=== PATIENT | female | born 1980 | race Caucasian/White ===

== ENCOUNTER 2017-01-29 01:38 | Emergency (ER) | payer SELFPAY ==
[~2017-01-29] VITALS: Ht 154.9 cm; Wt 75.0 kg
[~2017-01-29 01:38] MED LIST: BACT800T5 PO; PARO37.5CR PO; TRIA0.1L TOPICAL
[2017-01-29 01:41] VITALS: BP 128/87; PULSE 70; RESP 14; TEMP 98.2; O2SAT 99
[2017-01-29] MEDS ORDERED: ALBE200T PO (02:06)
--- NOTE | 2017-01-29 02:06 | PD ---
HPI Chief Complaint: Foreign Body Time Seen by Provider: 02:02 Travel History International Travel<30 days: No Contact w/Intl Traveler<30days: No Traveled to known affect area: No History of Present Illness HPI 36-year-old female presents to the emergency department for treatment of pinworms. Patient states that her nephew had pinworms and she was unaware of this. She states this evening she has been having rectal itching after lying down after her shower. She states that she went to see what was going on and she saw a small white worm. She denies any other symptoms but would like to be treated for pinworms due to exposure and her finding worm. She has no other symptoms to report. PFSH Past Medical History Anxiety: Yes Depression: Yes Heart Rhythm Problems: Yes (PT STATES HX OF BIGEMINI) High Cholesterol: Yes Diminished Hearing: No Genitourinary: Yes (POLYCYSTIC OVARIES) Immunizations Current: Yes ?: Not LMP: PCOS-JUN 2016 : 1 Para: 0 Ectopic : Yes Past Surgical History Gynecologic Surgery: Yes (LT TUBE REMOVED) Tonsillectomy: Yes Social History Alcohol Use: No Tobacco Use: No Substance Use: No Allergies-Medications (Allergen,Severity, Reaction): Coded Allergies: No Known Allergies (Unverified , 01/29/17) Reported Meds & Prescriptions Reported Meds & Active Scripts Active Albenza (Albendazole) 200 Mg Tab 400 Mg PO DIRECTED 4 Days Take two tablets by mouth now with food In two weeks, take remaining two tablets by mouth with food Triamcinolone Topical (Triamcinolone Acetonide) 0.1% Lotn 1 Applic TOPICAL TID Bactrim DS (Sulfamethoxazole-Trimethoprim DS) 1 Tab Tab 1 Tab PO Q12 7 Days Paxil 37.5 Mg Tab Cr (Paroxetine Hcl) 37.5 Mg Tabcr 37.5 Mg PO DAILY Review of Systems Except as stated in HPI: all other systems reviewed are Neg Physical Exam Narrative GENERAL: Well-nourished, well-developed email patient in no acute distress SKIN: Focused skin assessment warm/dry. HEAD: Normocephalic. EYES: No scleral icterus. No injection or drainage. NECK: Supple, trachea midline. No JVD or lymphadenopathy. CARDIOVASCULAR: Regular rate and rhythm without murmurs, gallops, or rubs. RESPIRATORY: Breath sounds equal bilaterally. No accessory muscle use. GASTROINTESTINAL: Abdomen soft, non-tender, nondistended. RECTAL EXAM: No masses or tenderness, no obvious worms are visualized. MUSCULOSKELETAL: No cyanosis, or edema. BACK: Nontender without obvious deformity. No CVA tenderness. Data Data Last Documented VS Vital Signs Date Time Temp Pulse Resp B/P Pulse Ox O2 Delivery O2 Flow Rate FiO2 01/29/17 01:41 98.2 70 14 128/[address] [facility] Medical Decision Making Medical Screen Exam Complete: Yes Emergency Medical Condition: Yes Medical Record Reviewed: Yes Differential Diagnosis Pinworms versus rectal itching versus anal fissure versus dermatitis Narrative Course 36-year-old female presents to the emergency department for evaluation. Patient has been exposed to pinworms and states that she saw one tonight after experiencing intense rectal itching. I am unable to visualize any worms at this time however the patient is requesting treatment or pinworms. Patient will be given a prescription for albendazole. She is encouraged to follow-up with primary care provider and return immediately with any acute worsening of symptoms. Diagnosis Primary Impression: Rectal itching Additional Impression: Family history of pinworm infection Referrals: Primary Care Physician Patient Instructions: General Instructions Additional Instructions: Frequent handwashing Repeat medication in 2 weeks Return immediately with any acute worsening of symptoms Med/Other Pt SpecificInfo: Prescription(s) given Scripts Albendazole (Albenza)200 Mg [id number] Mg PO DIRECTED 4 Days Ref 0 Take two tablets by mouth now with food In two weeks, take remaining two tablets by mouth with food Prov:María Salguero 01/29/17 Disposition: 01 DISCHARGE HOME Condition: Stable María Salguero January 29, 2017 02:06
== END 2017-01-29 03:13 | disposition home or self-care (01) ==
LOC: NEPK 01:38
DX: L29.0 Pruritus ani (principal)
CPT/HCPCS: 99282

== ENCOUNTER 2017-08-23 21:05 | Emergency (ER) | payer SELFPAY ==
[~2017-08-23 21:05] MED LIST changes: +ALBE200T PO
[2017-08-23 21:07] VITALS: BP 114/69; PULSE 78; RESP 16; TEMP 97.8; O2SAT 98
[2017-08-23 21:37] LABS: BACTERIA, URINE MANY /hpf; BLOOD, URINE NEG (NEG); COMMENT (UR) CULTURE INDICATED; CULTURE IF INDICATED CULTURE INDICATED; GLUCOSE,URINE NEG (NEG); KETONE, URINE NEG (NEG); MUCUS URINE MOD /lpf (OCC); NITRITE,URINE NEG (NEG); PH, URINE 6.5 (5.0-8.5); SQUAMOUS EPITHELIAL CELL URINE 8 /hpf (0-5); URINE COLOR YELLOW (YELLW/STRAW)
--- NOTE | 2017-08-23 22:39 | PD ---
HPI Chief Complaint: Complaint Time Seen by Provider: 22:20 Travel History International Travel<30 days: No Contact w/Intl Traveler<30days: No Traveled to known affect area: No History of Present Illness HPI This is a 37-year-old female to history of polycystic ovarian syndrome who presents for evaluation of suprapubic pressure, intermittent, for one week. No aggravating or relieving factors. She denies any actual abdominal pain and says that it is more of a pressure sensation. She endorses associated increased urinary frequency. Denies dysuria, urinary hesitancy. She does have white vaginal discharge. She reports that she is sexually active with one long- term partner. Her last menstrual period was several months ago- she reports very irregular periods secondary to PCOS. She has no other complaints at this time. [facility] Past Medical History Anxiety: Yes Depression: Yes Heart Rhythm Problems: Yes (PT STATES HX OF BIGEMINI) Cardiovascular Problems: Yes (bigeminy) High Cholesterol: Yes Diminished Hearing: No Genitourinary: Yes (POLYCYSTIC OVARIES) Immunizations Current: Yes : 1 Para: 0 Ectopic : Yes Past Surgical History Gynecologic Surgery: Yes (LT TUBE REMOVED) Tonsillectomy: Yes Social History Alcohol Use: No Tobacco Use: No Substance Use: No Allergies-Medications (Allergen,Severity, Reaction): Coded Allergies: No Known Allergies (Unverified , 01/29/17) Reported Meds & Prescriptions Reported Meds & Active Scripts Active Keflex (Cephalexin) 500 Mg Cap 500 Mg PO Q12H 7 Days Albenza (Albendazole) 200 Mg Tab 400 Mg PO DIRECTED 4 Days Take two tablets by mouth now with food In two weeks, take remaining two tablets by mouth with food Triamcinolone Topical (Triamcinolone Acetonide) 0.1% Lotn 1 Applic TOPICAL TID Bactrim DS (Sulfamethoxazole-Trimethoprim DS) 1 Tab Tab 1 Tab PO Q12 7 Days Paxil 37.5 Mg Tab Cr (Paroxetine Hcl) 37.5 Mg Tabcr 37.5 Mg PO DAILY Review of Systems Except as stated in HPI: all other systems reviewed are Neg Physical Exam Narrative GENERAL: Well-developed well-nourished female in no acute distress SKIN: Warm and dry. HEAD: Atraumatic. Normocephalic. EYES: Pupils equal and round. No scleral icterus. No injection or drainage. ENT: No nasal bleeding or discharge. Mucous membranes pink and moist. NECK: Trachea midline. No JVD. CARDIOVASCULAR: Regular rate and rhythm. No murmur appreciated. RESPIRATORY: No accessory muscle use. Clear to auscultation. Breath sounds equal bilaterally. GASTROINTESTINAL: Abdomen soft, non-tender, nondistended. Hepatic and splenic margins not palpable. No CVA tenderness. Pelvic examination in the presence of a female nurse: Small amount of white discharge noted in the vaginal canal. There is no cervical motion tenderness or adnexal tenderness. MUSCULOSKELETAL: No obvious deformities. No clubbing. No cyanosis. No edema. NEUROLOGICAL: Awake and alert. No obvious cranial nerve deficits. Motor grossly within normal limits. Normal speech. PSYCHIATRIC: Appropriate mood and affect; insight and judgment normal. Data Data Last Documented VS Vital Signs Date Time Temp Pulse Resp B/P (MAP) Pulse Ox O2 Delivery O2 Flow Rate FiO2 08/23/17 21:07 97.8 78 16 114/69 (84) 98 Room Air Orders Orders Urinalysis - C+S If Indicated (08/23/17 21:12) Ed Urine Pregnancytest Poc (08/23/17 21:12) Gc And Chlamydia Pcr (08/23/17 21:12) Urine Culture (08/23/17 21:20) Gc And Chlamydia Pcr (08/23/17 22:25) Wet Prep Profile (08/23/17 22:25) Ed Discharge Order (08/23/17 23:52) Labs Laboratory Tests Test 08/23/17 21:20 08/23/17 22:45 Urine Color YELLOW Urine Turbidity HAZY Urine pH 6.5 Urine Specific [place] 1.033 Urine Protein TRACE mg/dL Urine Glucose (UA) NEG mg/dL Urine Ketones NEG mg/dL Urine Occult Blood NEG Urine Nitrite NEG Urine Bilirubin NEG Urine Urobilinogen 2.0 MG/DL Urine Leukocyte Esterase SMALL Urine RBC 3 /hpf Urine WBC 5 /hpf Urine Squamous Epithelial Cells 8 /hpf Urine Bacteria MANY /hpf Urine Mucus MOD /lpf Microscopic Urinalysis Comment CULTURE INDICATED Chlamydia trachomatis DNA (PCR) NOT DETECTED Neisseria gonorrhoeae DNA (PCR) NOT DETECTED Clue Cells (Wet Prep) NONE SEEN Vaginal Trichomonas (Wet Prep) NONE SEEN Vaginal Yeast (Wet Prep) NONE SEEN MDM Medical Decision Making Medical Screen Exam Complete: Yes Emergency Medical Condition: Yes Medical Record Reviewed: Yes Differential Diagnosis Cystitis, urethritis, pyelonephritis, pelvic inflammatory disease, ovarian cyst , ovarian torsion Narrative Course 37-year-old female presents with 1 week of suprapubic pressure sensation, increased urinary frequency and vaginal discharge. Urinalysis reveals small leukocytes with many bacteria, contaminated specimen with 8 urine squamous epithelial cells. The wet prep is negative. Given the patient's suprapubic pressure and increased urinary frequency, we'll treat this bacteria with antibiotics, the patient is being started on Keflex pending urine culture results. Diagnosis Primary Impression: Cystitis Additional Instructions: Medications as prescribed. Stay well hydrated well-nourished. Return for any emergent medical conditions. Med/Other Pt SpecificInfo: Prescription(s) given Scripts Cephalexin (Keflex) 500 Mg Cap 500 MG PO Q12H for Infection for 7 Days, #14 CAP 0 Refills Prov: Beltran Sheikh MD 08/23/17 Disposition: 01 DISCHARGE HOME Condition: Stable Paul Alfredo Aug 23, 2017 22:39
[2017-08-23 23:26] LABS: CHLAMYDIA PCR NOT DETECTED (NOT DETECT); NEISSERIA PCR NOT DETECTED (NOT DETECT)
[2017-08-23] MEDS ORDERED: CEPH-460 PO (23:51)
[2017-08-24 01:29] LABS: CHLAMYDIA PCR NOT DETECTED (NOT DETECT); NEISSERIA PCR NOT DETECTED (NOT DETECT)
== END 2017-08-24 00:12 | disposition home or self-care (01) ==
LOC: NEPD 21:05
DX: N30.90 Cystitis, unspecified without hematuria (principal); A49.8 Other bacterial infections of unspecified site; F41.9 Anxiety disorder, unspecified; F32.9 Major depressive disorder, single episode, unspecified; E78.00 Pure hypercholesterolemia, unspecified; Z79.899 Other long term (current) drug therapy
CPT/HCPCS: 81001; 84703; 87086; 87210; 87491; 87591; 99285

== ENCOUNTER 2018-01-25 22:10 | Emergency (ER) | payer SELFPAY ==
[~2018-01-25 22:10] MED LIST changes: +CEPH-460 PO
[2018-01-25 22:22] VITALS: BP 137/88; PULSE 93; RESP 18; TEMP 98.4; O2SAT 98
[2018-01-25] MEDS ORDERED: PROT40TA PO (23:34)
--- NOTE | 2018-01-25 23:35 | PD ---
HPI Chief Complaint: Abdominal Pain Time Seen by Provider: 23:15 Travel History International Travel<30 days: No Contact w/Intl Traveler<30days: No Traveled to known affect area: No History of Present Illness HPI Patient is a 37-year-old female presents emergency department for evaluation of epigastric discomfort. She states she feels like her stomach is rumbling and she is hungry when she eats her pain actually gets better. States she had a tummy tuck and a breast lift a few weeks ago. She states she has been taking ibuprofen fairly regularly and thinks she might be taking too much. Denies any nausea vomiting diarrhea constipation blood in the stool fevers chest pain or shortness of breath. States symptoms are mild, epigastric, context and associated signs and symptoms as above PFSH Past Medical History Anxiety: Yes Depression: Yes Heart Rhythm Problems: Yes (PT STATES HX OF BIGEMINI) Cardiovascular Problems: Yes (bigeminy) High Cholesterol: Yes Diminished Hearing: No Genitourinary: Yes (POLYCYSTIC OVARIES) Reproductive: Yes (PCOS/D; thickened uterus lining; menorrhagia; metrorrhagia ) Immunizations Current: Yes ?: Not : 1 Para: 0 Miscarriage: 1 Ectopic : Yes (2010-ruptured in the fallopian tube and the tube had to be removed ) Past Surgical History Abdominal Surgery: Yes (tummy tuck) Gynecologic Surgery: Yes (LT TUBE REMOVED) Tonsillectomy: Yes Social History Alcohol Use: No Tobacco Use: No Substance Use: No Allergies-Medications (Allergen,Severity, Reaction): Coded Allergies: No Known Allergies (Unverified , 01/29/17) Reported Meds & Prescriptions Reported Meds & Active Scripts Active Protonix (Pantoprazole Sodium) 40 Mg Tab 40 Mg PO DAILY Keflex (Cephalexin) 500 Mg Cap 500 Mg PO Q12H 7 Days Albenza (Albendazole) 200 Mg Tab 400 Mg PO DIRECTED 4 Days Take two tablets by mouth now with food In two weeks, take remaining two tablets by mouth with food Triamcinolone Topical (Triamcinolone Acetonide) 0.1% Lotn 1 Applic TOPICAL TID Bactrim DS (Sulfamethoxazole-Trimethoprim DS) 1 Tab Tab 1 Tab PO Q12 7 Days Paxil 37.5 Mg Tab Cr (Paroxetine Hcl) 37.5 Mg Tabcr 37.5 Mg PO DAILY Review of Systems Except as stated in HPI: all other systems reviewed are Neg Physical Exam Narrative GENERAL: Well-nourished, well-developed patient. SKIN: Focused skin assessment warm/dry. HEAD: Normocephalic. EYES: No scleral icterus. No injection or drainage. NECK: Supple, trachea midline. No JVD or lymphadenopathy. CARDIOVASCULAR: Regular rate and rhythm without murmurs, gallops, or rubs. RESPIRATORY: Breath sounds equal bilaterally. No accessory muscle use. GASTROINTESTINAL: Abdomen soft, nondistended. No rebound no percussive tenderness, there is minimal tenderness which I think is clinically appropriate after tummy tuck. No CVA tenderness. MUSCULOSKELETAL: No cyanosis, or edema. BACK: Nontender without obvious deformity. No CVA tenderness. Data Data Last Documented VS Vital Signs Date Time Temp Pulse Resp B/P (MAP) Pulse Ox O2 Delivery O2 Flow Rate FiO2 01/25/18 22:22 98.4 93 18 137/88 (104) 98 Orders Orders Urinalysis - C+S If Indicated (01/25/18 23:15) Ed Urine Pregnancytest Poc (01/25/18 23:15) Ed Discharge Order (01/25/18 23:35) Labs Laboratory Tests Test 01/25/18 23:25 Urine Color YELLOW Urine Turbidity CLEAR Urine pH 5.5 Urine Specific [place] 1.025 Urine Protein NEG mg/dL Urine Glucose (UA) NEG mg/dL Urine Ketones NEG mg/dL Urine Occult Blood SMALL Urine Nitrite NEG Urine Bilirubin NEG Urine Urobilinogen LESS THAN 2.0 MG/DL Urine Leukocyte Esterase NEG Urine RBC 2 /hpf Urine WBC 1 /hpf Urine Squamous Epithelial Cells 2 /hpf Urine Mucus FEW /lpf Microscopic Urinalysis Comment CULT NOT INDICATED MDM Medical Decision Making Medical Screen Exam Complete: Yes Emergency Medical Condition: Yes Differential Diagnosis UTI, , reflux, peptic ulcer disease, pancreatitis unlikely, cholecystitis highly unlikely, obstruction highly unlikely peer Narrative Course Tender which I think is clinically appropriate after. There is no tenderness to deep palpation no peritoneal signs and otherwise she appears well. She has not had any symptoms of nausea vomiting diarrhea constipation blood in the stool. I do not think there is any indication further workup this patient at this time, discussed symptomatic management including cutting back on ibuprofen. Discussed need follow-up with her plastic surgeon primary care physician and return to ED criteria. She is stable for discharge. Diagnosis Primary Impression: Epigastric abdominal pain Med/Other Pt SpecificInfo: Prescription(s) given Scripts Pantoprazole (Protonix) 40 Mg Tab 40 MG PO DAILY for Reflux, #30 TAB 0 Refills Prov: Giuliano Marques MD 01/25/18 Disposition: 01 DISCHARGE HOME Condition: Stable Giuliano Marques MD January 25, 2018 23:35
[2018-01-25 23:46] LABS: BILIRUBIN, URINE NEG (NEG); BLOOD, URINE SMALL (NEG); GLUCOSE,URINE NEG (NEG); KETONE, URINE NEG (NEG); MUCUS URINE FEW /lpf (OCC); NITRITE,URINE NEG (NEG); PH, URINE 5.5 (5.0-8.5); SQUAMOUS EPITHELIAL CELL URINE 2 /hpf (0-5); URINE COLOR YELLOW (YELLW/STRAW); URINE LEUKOCYTE ESTERASE NEG (NEG)
== END 2018-01-25 23:40 | disposition home or self-care (01) ==
LOC: NEPC 22:10
DX: R10.13 Epigastric pain (principal)
CPT/HCPCS: 81001; 84703; 99283